=== PATIENT | male | born 1980 | race Caucasian/White ===

== ENCOUNTER 2018-06-25 20:44 | Emergency (ER) | payer OTHER ==
--- NOTE | 2018-06-25 21:04 | EDPHY ---
H & P Stated Complaint: opiate withdrawal - Personal History Current Tetanus/Diphtheria Vaccine: No - Medical/Surgical History Hx Asthma: Yes Hx Chronic Respiratory Disease: No Hx Diabetes: No Hx Cardiac Disease: No Hx Renal Disease: No Hx Cirrhosis: No Hx Alcoholism: No Hx HIV/AIDS: No Hx Splenectomy or Spleen Trauma: No Other PMH: hx asthma, opiates depedence - Social History Smoking Status: Current some day smoker Time Seen by Provider: 06/25/18 20:55 HPI/ROS: CHIEF COMPLAINT: "I am withdrawing" HISTORY OF PRESENT ILLNESS: 37-year-old male history of chronic back pain, opiate dependence for 18 years, stating that he took his last Dilaudid 8 mg tablet yesterday and is now experiencing withdrawal symptoms. He would like to remain sober from opiates. He informed contacted his insurance company and they recommend he go to the ER to possibly be admitted at [address] He denies: Suicidal or homicidal ideation, nausea or vomiting, hallucination, seizure. PRIMARY CARE PROVIDER: REVIEW OF SYSTEMS: 10 systems reviewed and negative with the exception of the elements mentioned in the history of present illness PAST MEDICAL & SURGICAL HISTORY: chronic back pain. Chronic opiate dependence. SOCIAL HISTORY: Denies illicit drug use PHYSICAL EXAM (Prior to examination, patient consented to physical exam, hands were washed and my usual and customary physical exam procedures followed) 1) GENERAL: Well-developed, well-nourished, alert and oriented. Appears anxious 2) HEAD: Normocephalic, atraumatic 3) HEENT: Pupils equal, round, reactive to light bilaterally. Sclera anicteric. 4) NECK: Full range of motion, no meningeal signs. 5) LUNGS: Clear auscultation bilaterally, no wheezes, no rhonchi, no retractions. 6) HEART: Regular rate and rhythm, no murmur, no heave, no gallop. 7) ABDOMEN: No guarding, no rebound, no focal tenderness, negative McBurney's, 8) MUSCULOSKELETAL: Moving all extremities, no focal areas of tenderness, no obvious trauma. No peripheral edema or discoloration. 9) BACK: No obvious trauma, no visual or palpable abnormality.] 10) SKIN: No rash, no petechiae. 11) Psychiatric: Patient is oriented X 3, there is no agitation. DIFFERENTIAL DIAGNOSIS: In no particular order including but not limited to opiate withdrawal, opiate dependence, chronic pain syndrome (Zan Vizcarra) Constitutional: Initial Vital Signs Temperature (C) 36.7 C 06/25/18 20:48 Heart Rate 81 06/25/18 20:48 Respiratory Rate 18 06/25/18 20:48 Blood Pressure 125/80 H 06/25/18 20:48 O2 Sat (%) 96 06/25/18 20:48 O2 Delivery Mode Room Air Allergies/Adverse Reactions: No Known Allergies Allergy (Unverified 06/25/18 20:47) Home Medications: Medication Instructions Recorded Dilaudid 06/25/18 Ondansetron Odt [Zofran Odt] 4 mg PO Q4PRN PRN #10 tab 06/25/18 Medical Decision Making ED Course/Re-evaluation: 9:02 p.m.: Will consult with mental health electrocardiograph technician has the patient would like inpatient opiate detox therapy at [address] I have reviewed [place] prescription drug monitoring program reported the patient. The patient filled a prescription for #150 Dilaudid 8 mg tablets on and #16 hydrocodone 5/325 tablets on 06/13/2018. He has use all these medications as of yesterday. Will not prescribe further opiates to the patient. 913 pm I consulted with mental health electrocardiograph technician, I was informed that [address] [place] [address] does not have an inpatient opiate withdrawl program. Patient was upset to hear this, started crying. He denies suicidal homicidal ideation. [facility]. I have given him other outpatient resources. Given prescription for Zofran should he develop nausea. He feels comfortable being discharged. Care of patient under supervision of primary Supervising physician Dr Macedo with whom I discussed case. (Zan Vizcarra) Other Provider: PHYSICIAN DOCUMENTATION: The patient was evaluated and managed by the Physician Vehicle Delivery Worker. My co- signature indicates that I have reviewed this chart and I agree with the findings and plan of care as documented. I am the secondary supervising physician. (Lalo Macedo) Departure - Departure Disposition: Home, Routine, Self-Care Clinical Impression: Opiate withdrawal Condition: Good Instructions: Opioid Withdrawal (ED) Referrals: NAOMI HINSON [Primary Care Provider] - 1-2 days without fail [facility] [Outside] - As per Instructions Prescriptions: Ondansetron Odt [Zofran Odt] 4 mg PO Q4PRN PRN #10 tab PRN Reason: Nausea
[2018-06-25 21:59] VITALS: BP 135/78
== END 2018-06-25 21:59 | disposition home or self-care (01) ==
DX: F11.23 Opioid dependence with withdrawal (principal); M54.9 Dorsalgia, unspecified; G89.29 Other chronic pain